=== PATIENT | female | born 1925 | race Caucasian/White ===

== ENCOUNTER 2016-12-03 18:28 | Emergency (ER) | payer MEDICARE ==
[2016-12-03] MEDS ORDERED: LACTATED RINGERS 1,000 ML ONE (19:33)
[2016-12-03 19:45] LABS: ABSOLUTE NEUTROPHIL COUNT 3.9 K/mm3 (1.8-7.7); BASO % 0.3 % (0.2-1.0); EOS # 0.4 (0.0-0.5); EOS % 5.1 % (0.9-2.9); HEMATOCRIT 39.1 % (37.0-47.0); HEMOGLOBIN 12.8 gm/l (12.0-16.0); IMM NEUT # 0.1 K/mm3 (0-0.2); IMM NEUT% 0.7 % (0-1); LYMPH # 2.3 (1.0-4.8); LYMPH % 31.6 % (15-45); MEAN CELL VOLUME 89.3 fl (81.0-99.0); MEAN CORPUSCULAR HEMOGLOBIN 29.2 pg (27.0-31.0); MEAN CORPUSCULAR HGB CONC 32.7 g/dl (33.0-37.0); MONO # 0.7 (0.0-0.8); NEUT % 53.3 % (43-75); PLATELET COUNT 274 K/mm3 (130-400); RED CELL DISTRIBUTION WIDTH 13.2 % (11.5-14.5)
[2016-12-03 20:06] LABS: ALB/GLOB RATIO 1.5 (>1.0); CALCIUM 9.8 mg/dL (8.6-10.3)
[2016-12-03 21:46] LABS: SPECIFIC GRAVITY 1.015 (1.001-1.030); URINE BILIRUBIN NEGATIVE (NEGATIVE); URINE BLOOD NEGATIVE (NEGATIVE); URINE GLUCOSE (UA) NEGATIVE (NEGATIVE); URINE LEUKOCYTE ESTERASE NEGATIVE (NEGATIVE); URINE NITRITE NEGATIVE (NEGATIVE); URINE PROTEIN NEGATIVE (NEGATIVE); URINE UROBILINOGEN NORMAL (0-1 mg/dl)
[2016-12-03 21:48] LABS: URINE APPEARANCE CLEAR; URINE COLOR YELLOW
--- NOTE | 2016-12-04 09:23 | RAD ---
12/04/2016 9:17 AM CHEST - 2 VIEWS History: Sudden onset weakness, diaphoresis and temporary vision loss. Symptoms have resolved. Comparison: 09/24/2016 Findings: Two views of the chest are obtained. The lungs are clear with out effusion or pneumothorax. Linear atelectasis or scarring is noted in the left costophrenic angle, similar to prior study. The cardiomediastinal silhouette is unremarkable.. The osseous structures are intact.. 2-lead left-sided pacemaker is present with leads terminating in expected regions of the right atrium and ventricle. IMPRESSION: No acute intrathoracic process.
== END 2016-12-04 00:11 | disposition home or self-care (01) ==
LOC: ED 18:28
DX: R07.9 Chest pain, unspecified (principal); E11.9 Type 2 diabetes mellitus without complications; K21.9 Gastro-esophageal reflux disease without esophagitis; I10 Essential (primary) hypertension; J44.9 Chronic obstructive pulmonary disease, unspecified; Z79.82 Long term (current) use of aspirin; Z79.899 Other long term (current) drug therapy; Z88.5 Allergy status to narcotic agent; Z88.0 Allergy status to penicillin
CPT/HCPCS: 85025; 80053; 81003; 84484 ×2; 71020; 99284 ×2; 96360; 96361; 93005 ×2; J7120